=== PATIENT | female | born 1960 | race Caucasian/White ===

== ENCOUNTER 2017-10-02 01:34 | Emergency (ER) | payer BC ==
[~2017-10-02] VITALS: Ht 165.1 cm; Wt 69.0 kg
[2017-10-02] MEDS ORDERED: INSULIN SYRING1 EA11 MISC (02:05)
[2017-10-02] MEDS ORDERED: METFORMIN HCL1000 MG PO (02:06)
[2017-10-02] MEDS ORDERED: ASPIR 8181 MG PO (02:07)
[2017-10-02] MEDS ORDERED: PERCOCET 5-3251 EACH PO (03:59)
[2017-10-02] MEDS ORDERED: ZOFRAN ODT4 MG PO (03:59)
[2017-10-02] MEDS ORDERED: FLOMAX0.4 MG PO (03:59)
== END 2017-10-02 04:46 | disposition home or self-care (01) ==
LOC: ED 01:34
DX: N13.2 Hydronephrosis with renal and ureteral calculous obstruction (principal); E11.9 Type 2 diabetes mellitus without complications; Z88.0 Allergy status to penicillin; Z79.84 Long term (current) use of oral hypoglycemic drugs; Z79.899 Other long term (current) drug therapy
CPT/HCPCS: 74176; 80053; 81001; 85025; 96374; 96375; 99284; J1170; J1885; J2405

== ENCOUNTER 2017-10-05 14:44 | Emergency (ER) | payer BC ==
[~2017-10-05] VITALS: Ht 165.1 cm; Wt 69.0 kg
[~2017-10-05 14:44] MED LIST: ASPIR 8181 MG PO; FLOMAX0.4 MG PO; INSULIN SYRING1 EA11 MISC; METFORMIN HCL1000 MG PO; PERCOCET 5-3251 EACH PO; ZOFRAN ODT4 MG PO
[2017-10-05] MEDS ORDERED: MORPHINE SULFAT15 MG PO (17:28)
== END 2017-10-05 17:55 | disposition home or self-care (01) ==
LOC: ED 14:44
DX: N20.2 Calculus of kidney with calculus of ureter (principal); E11.9 Type 2 diabetes mellitus without complications; Z90.89 Acquired absence of other organs; Z88.0 Allergy status to penicillin; Z79.4 Long term (current) use of insulin
CPT/HCPCS: 81001; 96374; 96375; 99283; J1170; J1885; J2405